=== PATIENT | female | born 2000 | race Caucasian/White ===

== ENCOUNTER 2019-03-11 17:02 | Emergency (ER) | payer MEDICAID ==
[2019-03-11 17:23] VITALS: BP 112/67
--- NOTE | 2019-03-11 17:30 | UC ---
Abdominal Pain Female HPI - HPI Summary HPI Summary: Pt presents with c/o of nausea, vomiting and diarrhea that began yesterday night and has since resolved. Pt states she still is having loose stools today but overall feels better. She also reports left ear pain. Has hx of OM - History of Current Complaint Chief Complaint: UCGI Stated Complaint: VOMITING Time Seen by Provider: 03/11/19 17:23 Hx Obtained From: Patient Hx Last Menstrual Period: 03/08/19 ?: No Timing: Constant Severity Initially: Mild Severity Currently: Mild Pain Intensity: 0 Radiates: No Character: Aching, Dull Aggravating Factor(s): Food Alleviating Factor(s): NPO Associated Signs and Symptoms: Positive: Nausea, Vomiting, Diarrhea - Risk Factors Ectopic Risk Factor: Negative Ovarian Torsion Risk Factor: Reproductive Age Allergies/Adverse Reactions: Allergies Allergy/AdvReac Type Severity Reaction Status Date / Time cefaclor [From [facility]] Allergy Rash Verified 03/11/19 17:17 PMH/Surg Hx/FS Hx/Imm Hx Previously Healthy: Yes - Surgical History Surgical History: None - Family History Known Family History: Positive: Cardiac Disease - Social History Occupation: Employed Full-time Lives: With Family Alcohol Use: None Substance Use Type: Marijuana Smoking Status (MU): Light Every Day Tobacco Smoker Type: Cigarettes, eCigarettes Amount Used/How Often: 1/2 PPD Have You Smoked in the Last Year: Yes - Immunization History Vaccination Up to Date: Yes Review of Systems All Other Systems Reviewed And Are Negative: Yes Constitutional: Positive: Chills, Fatigue Skin: Positive: Negative Eyes: Positive: Negative ENT: Positive: Ear Ache Respiratory: Positive: Negative Cardiovascular: Positive: Negative Gastrointestinal: Positive: Negative Genitourinary: Positive: Negative Motor: Positive: Negative Neurovascular: Positive: Negative Musculoskeletal: Positive: Negative Neurological: Positive: Negative Psychological: Positive: Negative Is Patient Immunocompromised?: No Physical Exam Triage Information Reviewed: Yes Appearance: Well-Appearing Vital Signs: Initial Vital Signs Temp 99.6 F 03/11/19 17:17 Pulse 86 03/11/19 17:17 Resp 20 03/11/19 17:17 BP 112/67 03/11/19 17:17 Pulse Ox 100 03/11/19 17:17 Vital Signs Reviewed: Yes Eye Exam: Normal ENT: Positive: TM bulging - left, TM red - left, Other - cerumen right Dental Exam: Normal Neck exam: Normal Respiratory Exam: Normal Cardiovascular Exam: Normal Abdominal Exam: Normal Abdomen Description: Positive: Nontender Musculoskeletal Exam: Normal Neurological Exam: Normal Psychological Exam: Normal Skin Exam: Normal Abd Pain Female Course/Dx - Course Course Of Treatment: I discussed the use of imodium and the risk of taking antibiotics with already existing loose stools. Pt verbalized understanding and agreed to plan of care. - Differential Dx/Diagnosis Differential Diagnosis: Other - gastroenteritis Provider Diagnosis: Otitis media of left ear Discharge ED - Sign-Out/Discharge Documenting (check all that apply): Patient Departure All imaging exams completed and their final reports reviewed: No Studies - Discharge Plan Condition: Stable Disposition: HOME Prescriptions: Azithromycin TAB* [Zithromax TAB (Z-ALEXANDRA) 250 mg #6 tabs] 2 tab PO .TODAY, THEN 1 DAILY #1 alexandra Patient Education Materials: Loperamide (By mouth), Ear Infection (ED), Acute Nausea and Vomiting (ED) Forms: *Work Release Referrals: [facility] [Outside] - If Needed No Primary Care Phys,NOPCP [Primary Care Provider] - - Billing Disposition and Condition Condition: STABLE Disposition: Home - Attestation Statements Provider Attestation: I was available for consult. This patient was seen by the PATY. The patient was not presented to, seen by, or examined by me. -Yoselin
== END 2019-03-11 17:47 | disposition home or self-care (01) ==
LOC: UCCORT 17:02
DX: H66.92 Otitis media, unspecified, left ear (principal); R11.2 Nausea with vomiting, unspecified; R19.7 Diarrhea, unspecified; F17.210 Nicotine dependence, cigarettes, uncomplicated; R53.83 Other fatigue; Z88.1 Allergy status to other antibiotic agents
CPT/HCPCS: 99202; G0463